=== PATIENT | female | born 1945 | race Caucasian/White ===

== ENCOUNTER → 2017-05-11 17:30 | Outpatient (CLI) | payer MEDICARE, MEDICAID, SELFPAY ==
--- NOTE | 2017-05-11 17:33 | XR_ITS ---
XR foot RT min 3V HISTORY: ITS.REASON: right heel pain ORDERING PHYSICIAN: Shayan Antony PATIENT AGE: 71 years COMPARISON: None FINDINGS: No fracture or dislocation. Generalized osteopenia. There is a small calcaneal spur at 3 mm nonspecific. There is normal alignment. IMPRESSION: No acute finding. Small calcaneal spur with generalized osteopenia
== END ==
PROVIDERS: PCP Nurse Practitioner Family; Visit Provider Nurse Practitioner Family
DX: M79.671 Pain in right foot (principal)
CPT/HCPCS: 73630

== ENCOUNTER → 2017-10-17 14:01 | Outpatient (CLI) | payer MEDICARE, MEDICAID, SELFPAY ==
[2017-10-17 18:12] LABS: Basophils % 0.6 % (0.1-2.0); Eosinophils # 0.2 K/mm3 (0.0-0.4); Eosinophils % 2.4 % (0.1-12.0); Hematocrit 40.1 % (37.0-47.0); Hemoglobin 13.2 g/dL (12.2-16.2); Lymphocytes # 2.1 K/mm3 (0.7-4.5); Lymphocytes % 29.6 K/mm3 (10-50); Mean Platelet Volume 7.2 fl (7.4-10.4); Monocytes # 0.6 K/mm3 (0.1-1.0); Monocytes % 8.5 % (1.7-9.3); Neutrophils # 4.1 K/mm3 (1.8-7.8); Platelet Count 318 K/mm3 (142-424); Red Blood Count 4.72 M/mm3 (4.20-5.40); Red Cell Distribution Width 12.9 % (11.5-17.5); White Blood Count 6.9 K/mm3 (4.8-10.8)
[2017-10-17 18:30] LABS: Alanine Aminotransferase 28 U/L (12-78); Albumin/Globulin Ratio 1.1 (1.1-1.8); Alkaline Phosphatase 107 U/L (46-116); Aspartate Amino Transferase 14 U/L (15-37); Bilirubin,Total 0.3 mg/dL (0.2-1.0); Blood Urea Nitrogen 19 mg/dL (7-18); Calcium 9.4 mg/dL (8.5-10.1); Carbon Dioxide 28 mmol/L (21.0-32.0); Chloride 101 mmol/L (98-107); Chol/HDL Ratio 4.2 (1-3.5); Cholesterol 182 mg/dL (140-200); Creatinine,Serum 0.79 mg/dL (0.55-1.02); Estimated Glomerular Filt Rate 72 ml/min (>60); GFR (African American) 87 ML/MIN (>60); Globulin 3.6 gm/dl (1.3-3.2); Glucose 99 mg/dL (74-106); HDL Cholesterol 43 mg/dL (29-89); LDL Cholesterol 99 mg/dL (0-130); Sodium 139 mmol/L (136-145); Thyroid Stimulating Hormone 1.92 uIU/ml (0.358-3.740); Total Protein,Serum 7.6 gm/dL (6.4-8.2); Triglycerides 200 mg/dL (30-200); VLDL Cholesterol 40 mg/dL (0-40)
== END ==
PROVIDERS: Visit Provider Emergency Medicine
DX: E78.5 Hyperlipidemia, unspecified (principal)
CPT/HCPCS: 80053; 80061; 84439; 84443; 85025

== ENCOUNTER → 2018-11-28 17:36 | Outpatient (CLI) | payer MEDICARE, MEDICAID, SELFPAY ==
[2018-11-28 18:42] LABS: Basophils # 0.1 K/mm3 (0-0.2); Basophils % 0.8 % (0.1-2.0); Eosinophils # 0.2 K/mm3 (0.0-0.4); Eosinophils % 2.5 % (0.1-12.0); Hemoglobin 12.5 g/dL (12.2-16.2); Lymphocytes # 2.2 K/mm3 (0.7-4.5); Lymphocytes % 32.3 % (10-50); Mean Corpuscular Hemoglobin 28.7 pg (27.0-31.2); Mean Corpuscular Volume 86.9 fl (81-99); Mean Platelet Volume 7.8 fl (7.4-10.4); Monocytes # 0.5 K/mm3 (0.1-1.0); Monocytes % 7.6 % (1.7-9.3); Neutrophils # 3.9 K/mm3 (1.8-7.8); Neutrophils % 56.8 % (37.0-80.0); Platelet Count 289 K/mm3 (142-424); Red Blood Count 4.37 M/mm3 (4.20-5.40); Red Cell Distribution Width 12.8 % (11.5-17.5); White Blood Count 6.9 K/mm3 (4.8-10.8)
[2018-11-28 19:02] LABS: Alanine Aminotransferase 30 U/L (12-78); Albumin/Globulin Ratio 1.1 (1.1-1.8); Alkaline Phosphatase 101 U/L (46-116); Aspartate Amino Transferase 24 U/L (15-37); Bilirubin,Total 0.3 mg/dL (0.2-1.0); Blood Urea Nitrogen 17 mg/dL (7-18); Calcium 9.3 mg/dL (8.5-10.1); Carbon Dioxide 29 mmol/L (21.0-32.0); Chloride 99 mmol/L (98-107); Cholesterol 163 mg/dL (140-200); Creatinine,Serum 0.64 mg/dL (0.55-1.02); Estimated Glomerular Filt Rate 91 ml/min (>60); Free T4 (Free Thyroxine) 1.03 ng/dl (0.76-1.46); GFR (African American) 110 ML/MIN (>60); Globulin 3.7 gm/dl (1.3-3.2); Glucose 83 mg/dL (74-106); HDL Cholesterol 41 mg/dL (29-89); LDL Cholesterol 84 mg/dL (0-130); Sodium 138 mmol/L (136-145); Total Protein,Serum 7.7 gm/dL (6.4-8.2); Triglycerides 190 mg/dL (30-200); VLDL Cholesterol 38 mg/dL (0-40)
[2018-11-30 07:57] LABS: Vitamin D 25 Hydroxy 31.2 ng/mL (30.0-100.0)
== END ==
PROVIDERS: Visit Provider Emergency Medicine
DX: I10 Essential (primary) hypertension (principal)
CPT/HCPCS: 80053; 80061; 82652; 84439; 84443; 85025

== ENCOUNTER → 2019-04-09 08:06 | Outpatient (CLI) | payer MEDICARE, MEDICAID, SELFPAY ==
--- NOTE | 2019-04-09 08:07 | CA_ITS ---
APPROVED REPORT EXAM: Comprehensive 2D, Doppler, and color-flow Echocardiogram Straight Cutter: Swetha Roldan RT(R) Ht: 4 ft 11 in Wt: 111lbs BSA: 1.44 BP: 153/78 mmHg Indications: CP, COPD, SOB, HTN, Hyperlipidemia 2D Dimensions LVOT 1.78 cm (M/F) 1.5-2.5 M-Mode Dimensions RVDd 1.59 cm (0.9-2.6) LVDd 4.44 cm (3.5-5.7) LVDs 3.16 cm (3.5-5.7) IVSd 0.84 cm (0.6-1.1) PWd 0.84 cm (0.6-1.1) EF (Teich) 55.70% FS 28.80% EDV (Teich) 89.60 mL ESV (Teich) 39.70 mL LV Diastology E/A Ratio 0.87 Mitral Valve MV A Velocity 103.00 (40-130 cm/s) Left Ventricle Left atrium is mildly enlarged, left ventricle is normal size, mild concentric left ventricular hypertrophy, visually estimated ejection fraction 55% with no regional wall motion abnormality, grade 1 diastolic dysfunction seen without tissue Doppler evidence of raise left atrial pressure. Right Ventricle Right atrium and right ventricular normal size and contractility. Aortic Valve Aortic valve is minimally thickened and fibrosed, there is no aortic stenosis or aortic insufficiency. Mitral Valve Mitral valve is grossly normal, there is mild mitral regurgitation. Tricuspid Valve Tricuspid valve is grossly normal, there is mild tricuspid regurgitation, tricuspid regurgitation jet velocity is inadequate for calculation of the right ventricular systolic pressure. Pulmonic Valve Pulmonic valve is poorly visualized. Great Vessels Aortic root is normal size. Pericardium No significant pericardial effusion noted. Conclusion 1. Mildly enlarged left atrium, normal left ventricular size, mild concentric left ventricular hypertrophy, visually estimated ejection fraction 55% with no regional wall motion abnormality. Grade 1 diastolic dysfunction seen without tissue Doppler evidence of raise left atrial pressure. 2. Mild mitral and tricuspid regurgitation. 3. No significant pericardial effusion noted. Electronically signed by : Tera Goodson, 04/09/2019 20:16:00
== END ==
PROVIDERS: PCP Emergency Medicine; Visit Provider Internal Medicine Cardiovascular Disease
DX: R06.00 Dyspnea, unspecified (principal)
CPT/HCPCS: 93306

== ENCOUNTER → 2019-09-11 13:41 | Outpatient (CLI) | payer MEDICARE, MEDICAID, SELFPAY ==
[2019-09-11 14:03] LABS: Alanine Aminotransferase 24 U/L (12-78); Albumin Level 4.8 g/dl (3.5-5.0); Albumin/Globulin Ratio 1.4 (1.1-1.8); Alkaline Phosphatase 109 U/L (38-126); Anion Gap 15.2 mEq/L (5-15); Aspartate Amino Transferase 35 U/L (14-36); Bilirubin,Total 0.7 mg/dl (0.2-1.3); Blood Urea Nitrogen 16 mg/dl (7-17); Calcium 9.9 mg/dl (8.4-10.2); Carbon Dioxide 27 mmol/L (22.0-30.0); Chloride 98 mmol/L (98-107); Chol/HDL Ratio 3.7 (1-3.5); Cholesterol 201 mg/dl (140-200); Estimated Glomerular Filt Rate 82 ml/min (>60); GFR (African American) 99 ML/MIN (>60); Globulin 3.4 g/dL (1.3-3.2); Glucose 98 mg/dl (74-100); HDL Cholesterol 55 mg/dl (40-60); Potassium 3.2 mmoL/L (3.5-5.1); Sodium 137 mmol/L (136-145); Total Protein,Serum 8.2 g/dl (6.3-8.2); Triglycerides 217 mg/dl (30-150); VLDL Cholesterol 43 mg/dL (0-40)
[2019-09-11 14:15] LABS: Direct LDL Cholesterol 110.08 mg/dL (100-129)
[2019-09-11 14:22] LABS: 25-OH Vitamin D, Total 34.1 ng/mL (30-100); Free T4 (Free Thyroxine) 1.28 ng/dl (0.78-2.19)
[2019-09-11 14:29] LABS: Basophils # 0.1 K/mm3 (0-0.2); Basophils % 0.7 % (0.1-2.0); Eosinophils # 0.2 K/mm3 (0.0-0.4); Hematocrit 36.5 % (37.0-47.0); Hemoglobin 12.6 g/dL (12.2-16.2); Lymphocytes # 1.9 K/mm3 (0.7-4.5); Lymphocytes % 30.2 % (10-50); Mean Corpuscular HGB Conc 34.6 g/dL (31.8-35.4); Mean Corpuscular Volume 86.5 fl (81-99); Mean Platelet Volume 7.8 fl (7.4-10.4); Monocytes # 0.5 K/mm3 (0.1-1.0); Monocytes % 7.1 % (1.7-9.3); Neutrophils # 3.7 K/mm3 (1.8-7.8); Neutrophils % 58.9 % (37.0-80.0); Platelet Count 298 K/mm3 (142-424); Red Blood Count 4.21 M/mm3 (4.20-5.40); Red Cell Distribution Width 12.9 % (11.5-17.5); White Blood Count 6.3 K/mm3 (4.8-10.8)
[2019-09-11 14:36] LABS: Thyroid Stimulating Hormone 1.92 uIU/mL (0.465-4.68)
== END ==
PROVIDERS: Visit Provider Emergency Medicine
DX: E78.5 Hyperlipidemia, unspecified (principal); I10 Essential (primary) hypertension; R68.89 Other general symptoms and signs; E55.9 Vitamin D deficiency, unspecified
CPT/HCPCS: 80053; 80061; 82306; 84439; 84443; 85025

== ENCOUNTER 2019-12-07 14:43 | Emergency (ER) | payer MEDICARE, MEDICAID, SELFPAY ==
[2019-12-07 14:54] VITALS: BP 153/83; PULSE 74; RESP 18; TEMP 37; O2SAT 98; BMI 22.2
--- NOTE | 2019-12-07 15:00 | CT_ITS ---
PROCEDURE: CT HEAD/BRAIN WO CON Referring Doctor: Frankie Hurst Patient Age:74Y CLINICAL INDICATION: fall head injury fell hit concrete with face head and neck injuries. COMPARISON: CT CT FACIAL BONES WO CON from 12/07/2019. Head injury face injury. TECHNIQUE: Standard axial images were obtained. All CT scans at the facility use one or more dose reduction, viz: automated exposure control, ma/kV adjustment per patient size (including targeted exams where dose is matched to indication, i.e. head), or iterative reconstruction technique. FINDINGS: No acute intracranial findings. No intracranial hemorrhage. No hydrocephalus.The ventricles and basal cisterns appear clear and satisfactory. Mild cerebral atrophy age-appropriate no mass or midline shift nor mass effect. No subdural or extra-axial fluid collection is evident. Posterior fossa unremarkable. . Skull intact- calvarium unremarkable appearance. Opacification of few of the left mastoid tip air cells tip reflecting very minor limited mastoid effusion.-Unimpressive. The more superior mastoid air cells on the left are clear. Middle ear and IAC's unremarkable. Right mastoid air cells well developed and clear throughout Nosinus air-fluid level. Visualized portions of the paranasal sinuses and orbits unremarkable. IMPRESSION: No acute intracranial findings Dictated by: Seven Collado MD 12/07/2019 17:21 Seven Collado MD in [facility] 12/07/2019 17:21
--- NOTE | 2019-12-07 15:01 | CT_ITS ---
PROCEDURE: CT CERVICAL SPINE WO CON Referring Doctor: Frankie Hurst Patient Age:74Y CLINICAL INDICATION: fall fall hit face on concrete facial injury. Neck pain. 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 All CT scans at the facility use one or more dose reduction, viz: automated exposure control, ma/kV adjustment per patient size (including targeted exams where dose is matched to indication, i.e. head), or iterative reconstruction technique. FINDINGS: Cervical spine with no acute fracture nor subluxation is evident. But nonspecific straightening most likely positional in nature although can be reflection of muscle spasm or neck pain. Normal prevertebral soft tissues. Facets, neural foramen and vertebral bodies intact. Mild degenerative facet changes Degenerative disc changes in cervical spondylosis developing at C5/6 mild disc space narrowing with some chondral cyst inferior C5 on the right. Minimal posterior osteophytic ridging and cervical spondylosis. . Schmorl's nodes superior endplate T2 noted Normal C1/C2 relationships. Mild apical scarring on the right more so than left. There is mild diffuse demineralization which accentuates striated appearance within the osseous elements of the C-spine.. If protein in the urine you might consider checking a serum electrophoresis IMPRESSION: Cervical spine intact with no acute fracture nor subluxation.,. Nonspecific straightening C-spine noted Dictated by: Seven Collado MD 12/07/2019 17:17 Seven Collado MD in [facility] 12/07/2019 17:17
--- NOTE | 2019-12-07 15:01 | CT_ITS ---
PROCEDURE: CT FACIAL BONES WO CON Referring Doctor: Frankie Hurst Patient Age:74Y CLINICAL HISTORY: fall facial injury hit face on concrete with lacerations and abrasion on nose and elsewhere COMPARISON: No exams were available for comparison TECHNIQUE: Axial images obtained with sagittal and coronal reformats. All CT scans at the facility use one or more dose reduction, viz: automated exposure control, ma/kV adjustment per patient size (including targeted exams where dose is matched to indication, i.e. head), or iterative reconstruction technique. FINDINGS: Bones: Unremarkable. No fracture, lytic, or blastic changes evident. No facial bone fractures . Sinuses: Unremarkable. Well developed paranasal sinuses throughout appear clear. The ostiomeatal complex and pathways are patent bilaterally.. No air-fluid levels or significant mucosal thickening. The mastoid air cells well developed and clear on the right. A few opacified left mastoid tip air cells noted. Minimal unimpressive but Orbits appear satisfactory. The medial wall and floor orbit intact.. The nasal bone is intact. There is deviation of the nasal septum with mild convexity to the right. Anteriorly the nose tilts to the left on the axial images. . There is some minor soft tissue irregularity at the superior aspect the nose towards the bridge of the nose, likely reflecting the recent soft tissue injury and superficial trauma Moderate engorgement nasal turbinates. Right and left TMJ intact. . IMPRESSION: Facial bones intact with no fracture. Paranasal sinuses well developed and clear. Dictated by: Seven Collado MD 12/07/2019 17:16 Seven Collado MD in [facility] 12/07/2019 17:16
--- NOTE | 2019-12-07 15:02 | XR_ITS ---
PROCEDURE: XR KNEE LT 3V Referring Doctor: Frankie Hurst Patient Age:74Y CLINICAL INDICATION: fall left knee pain Fall with knee pain COMPARISON: No exams were available for comparison FINDINGS: Left knee three views nonweightbearing Left knee intact with no fracture or dislocation. Lateral film suggests small joint effusion suprapatellar bursa-correlation required. The no lytic or blastic change. There is normal mineralization. The joint spaces are well-preserved. No significant degenerative/arthritic changes. No erosive changes evident. . On the AP film only node faint horizontal density which parallels the lateral tibial plateau. Doubtful significance but could reflect some early chondrocalcinosis IMPRESSION: No fracture evident Suspect minimal joint effusion suprapatellar bursa Dictated by: Seven Collado MD 12/07/2019 18:06 Seven Collado MD in [facility] 12/07/2019 18:06
--- NOTE | 2019-12-07 15:04 | HMH.EDFALL ---
ED Disposition Clinical Impression: Head trauma Qualifiers: Encounter type: initial encounter Qualified Code(s): S09.90XA - Unspecified injury of head, initial encounter Facial trauma Qualifiers: Encounter type: initial encounter Qualified Code(s): S09.93XA - Unspecified injury of face, initial encounter Disposition: Home, Self-Care Condition on Discharge: Good Additional Instructions: Please return to the ED for further evaluation if you develop difficulty walking, persistent vomiting, severe headache, or changes in vision. Referrals: Dane Moeller MD [Primary Care Provider] - - Critical Care Critical Care Time: No Attestation: On , the high probability of a clinically significant, sudden or life threatening deterioration of the following system(s) required my full and direct attention, intervention and personal management. The time I documented below is in addition to time spent performing reported procedures but includes the following listed in this critical care notation. Medical Decision Making - Anibal Inquiry Pt receiving controlled substance: No Vital Signs: 12/07/19 14:54 Temperature 98.6 F Temperature Source Oral Pulse Rate [Radial] 74 Respiratory Rate 18 Blood Pressure [Right Arm] 153/83 H Blood Pressure Mean [Right Arm] 106 Blood Pressure Position [Right Arm] Sitting 02 Sat by Pulse Oximetry 98 Oxygen Delivery Method Room Air Orders (Tests/Meds): ED MEDICATIONS Discontinued Medications Generic Name Dose Route Start Last Admin Trade Name Freq PRN Reason Stop Dose Admin Hydrocodone Bitart/Acetaminophen 1 tab 12/07/19 17:13 12/07/19 17:16 Hydrocodone/Apap 5/325 Mg Tablet PO 12/07/19 17:14 1 tab ONCE ONE Administration Tetanus/Reduced Diphtheria/Acell Pertussis 0.5 ml 12/07/19 15:02 12/07/19 16:59 Tet/Diphth/Pert-Adult 0.5ml Syringe IM 12/07/19 15:03 0.5 ml .ONCE ONE Administration ORDERS Category Date Time Status CT cervical spine wo con Stat Cat Scan 12/07/19 15:[address] head/brain wo con Stat Cat Scan 12/07/19 15:00 Taken Knee XR left 3 views [XR knee LT 3V] Stat Exams 12/07/19 15:02 Taken - Radiology Data #1 Image(s): Knee Image Reviewed: Yes I reviewed the patient's radiology image Preliminary Findings: Normal/NAD No acute abnormalities no evidence of fracture or dislocation. - CT Data CT Scan: Head, C-Spine Time Received: 16:[address] Reviewed: Yes: I have reviewed the patient's CT results Preliminary Findings: Normal/NAD Medical Decision Narrative: 74-year-old female who presents with facial trauma following a fall from standing mechanical in nature with negative LOC. Patient is well-appearing nontoxic initial examination no concerning findings on exam other than some nasal tenderness with an abrasion. Patient is not on blood thinners and has a nonfocal neurologic exam. CT of the head and face are ordered and as well as a x-ray of the left knee with pain and abrasion on exam. CT of the head and face demonstrate no acute abnormalities. Left knee x-rays reviewed demonstrating no acute fracture or dislocation. Patient is able to tolerate p.o. is discharged home with appropriate return precautions. Fall HPI - General Chief Complaint: Fall Stated Complaint: AO fall, Nose Lac, knee pain Time Seen by Provider: 12/07/19 15:05 Mode of Arrival: Ambulatory Source of Information: Patient, Spouse Limitations: No Limitations Description of Symptoms (Recalled from ER Triage Doc. by RN): to ed per pvt car with c/o fall states tripped over a curb c/o pain nose with lac noted also c/o lt knee pain. pt denies any loc, nausea, vomiting or visual changes - History of Present Illness HPI Narrative: 74-year-old female presents after a fall from standing mechanical over a curb landing on her face. Negative LOC does not take blood thinners and has had no difficulty walking or dizziness or changes in vision. No persistent vomiting since t
[2019-12-07 17:46] VITALS: BP 123/85; PULSE 87; RESP 18; TEMP 36.8; O2SAT 100
== END 2019-12-07 17:46 | disposition home or self-care (01) ==
PROVIDERS: Emergency Provider Student in an Organized Health Care Education/Training Program; PCP Emergency Medicine
DX: S01.511A Laceration without foreign body of lip, initial encounter (principal); W10.1XXA Fall (on)(from) sidewalk curb, initial encounter; K21.9 Gastro-esophageal reflux disease without esophagitis; I10 Essential (primary) hypertension; E78.5 Hyperlipidemia, unspecified; E03.9 Hypothyroidism, unspecified; Z79.899 Other long term (current) drug therapy; Z88.2 Allergy status to sulfonamides; Z90.49 Acquired absence of other specified parts of digestive tract; Z90.710 Acquired absence of both cervix and uterus; Z23 Encounter for immunization
CPT/HCPCS: 70450; 70486; 72125; 73562; 90471; 90715; 99282

== ENCOUNTER → 2020-10-27 12:55 | Outpatient (CLI) | payer MEDICARE, MEDICAID, SELFPAY | PROVIDERS: Visit Provider Surgery | DX: Z01.812 Encounter for preprocedural laboratory examination (principal); Z20.822 Contact with and (suspected) exposure to COVID-19; R13.10 Dysphagia, unspecified; R05 Cough | CPT/HCPCS: U0003 ==

== ENCOUNTER 2020-10-29 07:20 | Day surgery (SDC) | payer MEDICARE, MEDICAID, SELFPAY ==
[2020-10-27 14:00] VITALS: BMI 23.6
[2020-10-29 07:44] VITALS: BP 147/81; PULSE 80; RESP 18; TEMP 36.8; O2SAT 98
--- NOTE | 2020-10-29 08:00 | P.PN_ITS ---
[facility] Anesthesia Checklist - Patient Identification Patient Identification: Arm Band - Structural Data Admitted From: Home Planned Operative Procedure/s: EGD Consent for Planned Operative Procedure(s) Verified: Yes - NPO Status Verified Time NPO: 00:00 - Additional verifications Anesthesia Reactions: No - Airway Assessment C-Spine Mobility Assessed: Yes TMJ Mobility Assessed: Yes Dentition: Poor Dentition - Neurological Assessment Level of Consciousness: Awake Hx Seizures: No Numbness or tingling in extremities: No - Anesthesia Plan Anesthesia Risk discussed: Yes Anesthesia Plan: Verified ASA Class: III Anesthesia Type: MAC [facility] History I have reviewed the patient's past medical history: Yes Medical History: Reports:: Gastroesophageal Reflux Disease(GERD), Hyperlipidemia, Hypertension, Lung Disease Denies:: Cancer, Diabetes Mellitus Type 1, Diabetes Mellitus Type 2, Gastrointestinal Bleed, Internal Pacemaker, MRSA, Renal Disease, Seizures, Ulcer *Have you ever received a pneumonia vaccine?: No *Have you received a flu vaccine this season?: Yes Other Medical History: Reports: Hypothyroidism Anesthesia experience/problems:: None Laterality Cases: Bilateral: Cataract Other Surgeries: Yes: Cholecystectomy, Colonoscopy, , EGD, Hysterectomy-Total, Other. No: Pacemaker Amputation: No Fractures: Yes - *Social History Last grade of school completed: 9th or 10th Smoking Status: Never smoker Alcohol Intake: never Substance Use Type: denies use *Occupational Status:: disabled Housing: other Household Members: other *Travel in the last 8 weeks: None Family Hx:: Non-contributory
[2020-10-29 08:17] VITALS: O2SAT 98
--- NOTE | 2020-10-29 08:36 | HMH.SCOPE ---
- Procedure: Date: 10/29/20 Patient Date of :: 1945 Procedure Performed:: Esophagogastroduodenoscopy with biopsies Indications:: Patient is a 74-year-old female. She is somewhat of a poor historian. She is referred by Dr. Moeller apparently for upper endoscopy to apparently work-up cough. Patient has had an intractable cough of unclear etiology. She does have a history of GERD and takes omeprazole. She denies any symptoms of odynophagia or dysphagia. Performing Provider:: James Camacho MD Referring Provider:: Rico Moeller MD Sedation:: MAC sedation Procedure:: Patient was taken to endoscopy procedure room. She was positioned lateral decubitus position. With placement of the bite block patient has significant retching and gagging. Adequate intravenous sedation was achieved. Olympus endoscope was inserted via the oropharynx. Esophagus was cannulated. There may have been some cricopharyngeal spasm. Overall esophagus appeared relatively unremarkable. Gastroesophageal junction was encountered at 35 cm from the incisors. Stomach was cannulated and insufflated. Retroflexion revealed tiny hiatal hernia. There was some diffuse mild nonerosive gastritis. Biopsies were obtained. Biopsies obtained for CLOtest for H. pylori. Pylorus was traversed. Duodenum appeared unremarkable. Endoscope was withdrawn into the distal esophagus. Biopsy was obtained at the gastroesophageal junction to evaluate for Dumont's esophagus. Distal esophageal biopsy was obtained to rule out microscopic esophagitis. There was no obvious evidence of esophagitis consistent with reflux and aspiration. Endoscope was withdrawn. Findings:: Small hiatal hernia Mild nonerosive gastritis Recommendations:: No evidence of definite reflux is a contributing factor for her cough Complications:: None immediately apparent Estimated blood obtained (mL): 4
[2020-10-29 08:38] VITALS: BP 128/67; PULSE 93; RESP 18; TEMP 36.4; O2SAT 95
[2020-10-29 08:48] VITALS: BP 131/67; PULSE 83; RESP 18; O2SAT 98
[2020-10-29 08:58] VITALS: BP 146/82; PULSE 83; RESP 18; O2SAT 96
[2020-10-29 09:08] VITALS: BP 139/87; PULSE 84; RESP 18; O2SAT 97
== END 2020-10-29 09:08 | disposition home or self-care (01) ==
LOC: OUTP 07:22
PROVIDERS: PCP Emergency Medicine; Visit Provider Surgery
PROC: 0DJ08ZZ Inspection of Upper Intestinal Tract, Via Natural or Artificial Opening Endoscopic (ICD-10-PCS; CPT 43235; principal; 2020-10-29 08:30)
DX: K29.60 Other gastritis without bleeding (principal); K44.9 Diaphragmatic hernia without obstruction or gangrene; E78.5 Hyperlipidemia, unspecified; I10 Essential (primary) hypertension; K21.9 Gastro-esophageal reflux disease without esophagitis; J98.4 Other disorders of lung; Z90.49 Acquired absence of other specified parts of digestive tract; E03.9 Hypothyroidism, unspecified; Z88.2 Allergy status to sulfonamides; Z88.8 Allergy status to other drugs, medicaments and biological substances; Z79.899 Other long term (current) drug therapy
CPT/HCPCS: 43239; 87339; 88305

== ENCOUNTER 2021-10-30 14:20 | Emergency (ER) | payer MEDICARE, MEDICAID, SELFPAY ==
--- NOTE | 2021-10-30 15:57 | XR_ITS ---
FINAL REPORT CLINICAL HISTORY: fall this morning and right knee pain FINDINGS: Right knee Three views were obtained. There is no acute fracture or dislocation. No soft tissue abnormality is identified. Small joint effusion is identified. The bones are osteopenic. IMPRESSION: Small joint effusion. Reviewed, Interpreted and Dictated by Yefri Maxwell MD Transcribed by Rukhsana Cooper Authenticated and [facility]
--- NOTE | 2021-10-30 15:57 | XR_ITS ---
FINAL REPORT CLINICAL HISTORY: fall right low leg pain/foot pain FINDINGS: Right foot Three views were obtained. There is no acute fracture or dislocation. The joint spaces appear normal. No soft tissue abnormality is identified. There is a small plantar spur. The bones are osteopenic. IMPRESSION: No acute process. Reviewed, Interpreted and Dictated by Yefri Maxwell MD Transcribed by Rukhsana Cooper Authenticated and . [facility]
--- NOTE | 2021-10-30 15:57 | XR_ITS ---
FINAL REPORT CLINICAL HISTORY: fall right low leg pain FINDINGS: Right tibia fibula Two views were obtained. There is no acute fracture or dislocation. The joint spaces appear normal. No soft tissue abnormality is identified. The bones are osteopenic. IMPRESSION: No acute process. Reviewed, Interpreted and Dictated by Yefri Maxwell MD Transcribed by Rukhsana Cooper Authenticated and [facility]
--- NOTE | 2021-10-30 15:57 | XR_ITS ---
FINAL REPORT CLINICAL HISTORY: fall right lower leg pain FINDINGS: Right ankle Three views were obtained. There is no acute fracture or dislocation. The joint spaces appear normal. No soft tissue abnormality is identified. There is a small plantar spur. The bones are osteopenic. The mortise is intact. IMPRESSION: No acute process. Reviewed, Interpreted and Dictated by Yefri Maxwell MD Transcribed by Rukhsana Cooper Authenticated and [facility]
--- NOTE | 2021-10-30 15:59 | EXP.UTC ---
Discharge Plan Disposition Patient Disposition: Home, Self-Care Condition: Good Prescriptions Prescriptions: No Action simvastatin 10 mg tablet See Rx Instructions .ROUTE .COMPLEX Qty: 90 0RF Dose Instruction: TAKE 1 TABLET BY MOUTH ONCE DAILY FOR CHOLESTEROL Rx Instructions: TAKE 1 TABLET BY MOUTH ONCE DAILY FOR CHOLESTEROL hydrochlorothiazide 25 mg tablet See Rx Instructions .ROUTE .COMPLEX Qty: 90 0RF Dose Instruction: TAKE 1 TABLET BY MOUTH ONCE DAILY Rx Instructions: TAKE 1 TABLET BY MOUTH ONCE DAILY levothyroxine 25 mcg tablet See Rx Instructions .ROUTE .COMPLEX Qty: 90 0RF Dose Instruction: TAKE 1 TABLET BY MOUTH ONCE DAILY Rx Instructions: TAKE 1 TABLET BY MOUTH ONCE DAILY omeprazole 40 mg capsule,delayed release(DR/EC) See Rx Instructions .ROUTE .COMPLEX Qty: 90 0RF Dose Instruction: TAKE 1 CAPSULE BY MOUTH ONCE DAILY FOR GERD Rx Instructions: TAKE 1 CAPSULE BY MOUTH ONCE DAILY FOR GERD losartan 50 mg tablet See Rx Instructions .ROUTE .COMPLEX Qty: 90 0RF Dose Instruction: TAKE 1 TABLET BY MOUTH ONCE DAILY Rx Instructions: TAKE 1 TABLET BY MOUTH ONCE DAILY metoprolol tartrate 50 mg tablet See Rx Instructions .ROUTE .COMPLEX Qty: 180 0RF Dose Instruction: TAKE 1 TABLET BY MOUTH TWICE DAILY Rx Instructions: TAKE 1 TABLET BY MOUTH TWICE DAILY Referrals Referrals: Dane Moeller MD [Primary Care Provider] - Enter time for follow up Corey Spicer MD [Staff Physician] - Enter time for follow up Activity Restrictions/Add. Instructions Additional Instructions/Restrictions: Rest the extremity, apply ice for 15 minutes as tolerated three or four times per day, Wear the terri wrap for compression, Elevate the extremity as tolerated while you are resting. Take ibuprofen for pain Follow up with Dr. Spicer (orthopedics). Sometimes there can be fractures that don't show up well on the first set of x-rays. I put in a referral but you need to call his office and schedule an appointment. Follow up with your regular doctor. GO TO THE ER FOR ANY WORSENING SYMPTOMS Clinical Impressions Clinical Impression: Right knee sprain Instructions Patient Instructions: DI for Knee Sprain, DI for Knee Pain, How to Use a Knee Immobilizer Discharge ED Provider: Kevin Yee [facility] General Stated complaint: fell hurt knees Time Seen by Provider: 10/30/21 15:59 History of Present Illness Provider Complaint: She states that she fell yesterday evening and twisted her right knee. She states that walking and bearing weight on it makes it worse. She denies that the knee is unstable. Related Data Previous Rx's Medication Instructions Recorded hydrochlorothiazide 25 mg tablet See Rx Instructions .Route 09/24/21 .COMPLEX #90 tabs levothyroxine 25 mcg tablet See Rx Instructions .Route 09/24/21 .COMPLEX #90 tabs losartan 50 mg tablet See Rx Instructions .Route 09/24/21 .COMPLEX #90 tabs metoprolol tartrate 50 mg tablet See Rx Instructions .Route 09/24/21 .COMPLEX #180 tabs omeprazole 40 mg capsule,delayed See Rx Instructions .Route 09/24/21 release .COMPLEX #90 caps simvastatin 10 mg tablet See Rx Instructions .Route 09/24/21 .COMPLEX #90 tabs Allergies Allergy/AdvReac Type Severity Reaction Status Date / Time Sulfa (Sulfonamide Allergy Intermediate rash Verified 10/30/21 16:15 Antibiotics) tuberculin,PPD,multi-puncture Allergy Intermediate Swelling Verified 10/30/21 16:15 of Lip/Tongue/Throat promethazine [From [facility]] Allergy Unknown VOMITTING Verified 10/30/21 16:15 PFSH PFSH Social History Smoking Status: Never smoker alcohol intake: never substance use type: denies use current occupational status: unemployed household members: none housing: house caffeine: Yes ROS Obtained: Yes All systems
[2021-10-30 16:12] VITALS: BP 125/68; PULSE 79; RESP 16; TEMP 37.2; O2SAT 98; BMI 23.6
[2021-10-30 17:08] VITALS: BP 125/68; PULSE 79; RESP 16; TEMP 37.2
== END 2021-10-30 17:09 | disposition home or self-care (01) ==
PROVIDERS: Emergency Provider Nurse Practitioner Family; PCP Emergency Medicine
DX: S83.91XA Sprain of unspecified site of right knee, initial encounter (principal); Z79.899 Other long term (current) drug therapy; Z88.2 Allergy status to sulfonamides; Z88.8 Allergy status to other drugs, medicaments and biological substances; Z88.7 Allergy status to serum and vaccine; X50.1XXA Overexertion from prolonged static or awkward postures, initial encounter
CPT/HCPCS: 73562; 73590; 73610; 73630; 99213; G0463

== ENCOUNTER 2021-11-25 19:44 | Emergency (ER) | payer MEDICARE, MEDICAID, SELFPAY ==
[2021-11-25] VITALS (8 sets, daily range): BP systolic 129–165; BP diastolic 63–88; PULSE 83–119; RESP 18; TEMP 36.7–38.8; O2SAT 95; BMI 24.0
[2021-11-25 20:35] LABS: Influenza A, PCR Not Detected (NotDetected); Influenza B, PCR Not Detected (NotDetected)
--- NOTE | 2021-11-25 20:36 | XR_ITS ---
PROCEDURE INFORMATION: Exam: XR Chest Exam date and time: 11/25/2021 8:41 PM Age: 76 years old Clinical indication: Fever TECHNIQUE: Imaging protocol: Radiologic exam of the chest. Views: 2 views. COMPARISON: CT CERVICAL SPINE WO CON 12/07/2019 3:42 PM FINDINGS: Lungs: Unremarkable. No consolidation. Pleural spaces: Unremarkable. No pleural effusion. No pneumothorax. Heart/Mediastinum: Calcified mediastinal lymph nodes. No cardiomegaly. Bones/joints: Unremarkable. IMPRESSION: No acute cardiopulmonary abnormality.
--- NOTE | 2021-11-25 20:50 | PC.NURSE ---
Pt gone to RAD
--- NOTE | 2021-11-25 21:24 | HMH.EDURI ---
Discharge Plan Disposition Patient Disposition: Home, Self-Care Prescriptions Prescriptions: No Action simvastatin 10 mg tablet See Rx Instructions .ROUTE .COMPLEX Qty: 90 0RF Dose Instruction: TAKE 1 TABLET BY MOUTH ONCE DAILY FOR CHOLESTEROL Rx Instructions: TAKE 1 TABLET BY MOUTH ONCE DAILY FOR CHOLESTEROL hydrochlorothiazide 25 mg tablet See Rx Instructions .ROUTE .COMPLEX Qty: 90 0RF Dose Instruction: TAKE 1 TABLET BY MOUTH ONCE DAILY Rx Instructions: TAKE 1 TABLET BY MOUTH ONCE DAILY levothyroxine 25 mcg tablet See Rx Instructions .ROUTE .COMPLEX Qty: 90 0RF Dose Instruction: TAKE 1 TABLET BY MOUTH ONCE DAILY Rx Instructions: TAKE 1 TABLET BY MOUTH ONCE DAILY omeprazole 40 mg capsule,delayed release(DR/EC) See Rx Instructions .ROUTE .COMPLEX Qty: 90 0RF Dose Instruction: TAKE 1 CAPSULE BY MOUTH ONCE DAILY FOR GERD Rx Instructions: TAKE 1 CAPSULE BY MOUTH ONCE DAILY FOR GERD losartan 50 mg tablet See Rx Instructions .ROUTE .COMPLEX Qty: 90 0RF Dose Instruction: TAKE 1 TABLET BY MOUTH ONCE DAILY Rx Instructions: TAKE 1 TABLET BY MOUTH ONCE DAILY metoprolol tartrate 50 mg tablet See Rx Instructions .ROUTE .COMPLEX Qty: 180 0RF Dose Instruction: TAKE 1 TABLET BY MOUTH TWICE DAILY Rx Instructions: TAKE 1 TABLET BY MOUTH TWICE DAILY Referrals Follow up/Referrals: Dane Moeller MD [Primary Care Provider] - See instructions Clinical Impressions Clinical Impression: COVID-19 Instructions Patient Instructions: DI for COVID-19 (Suspected or Confirmed ) Discharge ED Provider: Dane Moeller URI/Sore Throat HPI General Chief Complaint: Upper Respiratory Infection Stated Complaint: Coughing,sneezing Time Seen by Provider: 11/25/21 21:25 Mode of Arrival: Ambulatory Source of Information: Patient and Medical Record Limitations: No Limitations Description of Symptoms (Recalled from ER Triage Doc. by RN): pt c/o coughing, nauesa, sneezing, PATE since yesterday History of Present Illness HPI Narrative: has uri sx with cough since yesterday and does not feel well - Complaint: cough and nasal congestion Onset (ago): day(s) Duration: intermittent Severity: moderate Able to tolerate fluids by mouth: Yes Associated symptoms: denies other symptoms Treatments prior to arrival: none Related Data Previous Rx's Medication Instructions Recorded hydrochlorothiazide 25 mg tablet See Rx Instructions .Route 09/24/21 .COMPLEX #90 tabs levothyroxine 25 mcg tablet See Rx Instructions .Route 09/24/21 .COMPLEX #90 tabs losartan 50 mg tablet See Rx Instructions .Route 09/24/21 .COMPLEX #90 tabs metoprolol tartrate 50 mg tablet See Rx Instructions .Route 09/24/21 .COMPLEX #180 tabs omeprazole 40 mg capsule,delayed See Rx Instructions .Route 09/24/21 release .COMPLEX #90 caps simvastatin 10 mg tablet See Rx Instructions .Route 09/24/21 .COMPLEX #90 tabs Allergies Allergy/AdvReac Type Severity Reaction Status Date / Time Sulfa (Sulfonamide Allergy Intermediate rash Verified 10/30/21 16:15 Antibiotics) tuberculin,PPD,multi-puncture Allergy Intermediate Swelling Verified 10/30/21 16:15 of Lip/Tongue/Throat promethazine [From PHENERGAN] Allergy Unknown VOMITTING Verified 10/30/21 16:15 [facility] Medical History (Updated 11/25/21 @ 23:23 by Dane Moeller MD) High cholesterol Hypertension Social History (Updated 10/30/21 @ 22:42 by Kevin Yee APRN) Smoking Status: Never smoker alcohol intake: never substance use type: denies use current occupational status: unemployed Travel in the last 8 weeks: None household members: none housing: house caffeine: Yes ROS Obtained: Yes All systems reviewed & no additional complaints except as documented Constitutional Constitutional: Reports as per HPI and Reports malaise Eyes Eyes: Denies eye discharge ENT
[2021-11-25 21:36] LABS: Alanine Aminotransferase 37 U/L (12-78); Albumin Level 4.2 g/dl (3.5-5.0); Albumin/Globulin Ratio 1.2 (1.1-1.8); Alkaline Phosphatase 150 U/L (38-126); Anion Gap 16.1 mEq/L (5-15); Aspartate Amino Transferase 41 U/L (14-36); Bilirubin,Total 0.2 mg/dl (0.2-1.3); Blood Urea Nitrogen 15 mg/dl (7-17); Calcium 8.7 mg/dl (8.4-10.2); Carbon Dioxide 24 mmol/L (22.0-30.0); Chloride 98 mmol/L (98-107); Creatinine Clearance Estimated 40 mL/min (50-200); Estimated Glomerular Filt Rate 97 ml/min (>60); GFR (African American) 117 ML/MIN (>60); Globulin 3.4 g/dL (1.3-3.2); Glucose 110 mg/dl (74-100); Potassium 3.1 mmoL/L (3.5-5.1); Sodium 135 mmol/L (136-145); Total Protein,Serum 7.6 g/dl (6.3-8.2)
[2021-11-25 21:41] LABS: C-Reactive Protein 20.1 mg/L (0-4)
[2021-11-25 21:56] LABS: Procalcitonin 0.085 ng/mL (0.0-2.0)
[2021-11-25 22:02] LABS: Erythrocyte Sedimentation Rate 36 mm/hr (0-30)
[2021-11-25 22:08] LABS: Coronavirus 19, PCR Detected (NotDetected)
[2021-11-25 23:48] LABS: Basophils # 0.1 K/mm3 (0-0.2); Basophils % 1.1 % (0.1-2.0); Eosinophils % 0.6 % (0.1-12.0); Hematocrit 34.6 % (37.0-47.0); Hemoglobin 11.2 g/dL (12.2-16.2); Lymphocytes # 0.7 K/mm3 (0.7-4.5); Lymphocytes % 9.8 % (10-50); Mean Corpuscular HGB Conc 32.5 g/dL (31.8-35.4); Mean Corpuscular Hemoglobin 27.5 pg (27.0-31.2); Mean Corpuscular Volume 84.7 fl (81-99); Mean Platelet Volume 7.6 fl (7.4-10.4); Monocytes # 0.9 K/mm3 (0.1-1.0); Monocytes % 11.6 % (1.7-9.3); Neutrophils # 5.8 K/mm3 (1.8-7.8); Platelet Count 318 K/mm3 (142-424); Red Blood Count 4.08 M/mm3 (4.20-5.40); White Blood Count 7.5 K/mm3 (4.8-10.8)
== END 2021-11-25 23:46 | disposition home or self-care (01) ==
PROVIDERS: Emergency Provider Emergency Medicine; PCP Emergency Medicine
DX: U07.1 COVID-19 (principal)
CPT/HCPCS: 71046; 80053; 84145; 85025; 85651; 86140; 99283; C9803; U0003; U0005

== ENCOUNTER → 2022-07-05 23:32 | Outpatient (CLI) | payer MEDICARE, MEDICAID, SELFPAY ==
[2022-07-05 17:49] LABS: Basophils # 0.1 K/mm3 (0-0.2); Basophils % 0.7 % (0.1-2.0); Eosinophils # 0.2 K/mm3 (0.0-0.4); Eosinophils % 2.5 % (0.1-12.0); Hematocrit 39.1 % (37.0-47.0); Hemoglobin 12.8 g/dL (12.2-16.2); Lymphocytes # 1.6 K/mm3 (0.7-4.5); Lymphocytes % 22.2 % (10-50); Mean Corpuscular HGB Conc 32.7 g/dL (31.8-35.4); Mean Corpuscular Hemoglobin 27.8 pg (27.0-31.2); Mean Corpuscular Volume 85.1 fl (81-99); Mean Platelet Volume 8.4 fl (7.4-10.4); Monocytes # 0.5 K/mm3 (0.1-1.0); Monocytes % 6.9 % (1.7-9.3); Neutrophils % 67.8 % (37.0-80.0); Platelet Count 407 K/mm3 (142-424); Red Blood Count 4.59 M/mm3 (4.20-5.40); Red Cell Distribution Width 13.9 % (11.5-17.5); White Blood Count 7.4 K/mm3 (4.8-10.8)
[2022-07-05 18:25] LABS: Alanine Aminotransferase 30 U/L (12-78); Albumin Level 4.7 g/dl (3.5-5.0); Albumin/Globulin Ratio 1.4 (1.1-1.8); Alkaline Phosphatase 110 U/L (38-126); Amylase 70 U/L (30-110); Anion Gap 18.6 mEq/L (5-15); Aspartate Amino Transferase 32 U/L (14-36); Bilirubin,Total 0.8 mg/dl (0.2-1.3); Blood Urea Nitrogen 17 mg/dl (7-17); Calcium 9.5 mg/dl (8.4-10.2); Carbon Dioxide 24 mmol/L (22.0-30.0); Chloride 96 mmol/L (98-107); Chol/HDL Ratio 4.4 (1-3.5); Cholesterol 233 mg/dl (140-200); Estimated Glomerular Filt Rate 97 ml/min (>60); GFR (African American) 117 ML/MIN (>60); Globulin 3.3 g/dL (1.3-3.2); Glucose 98 mg/dl (74-100); HDL Cholesterol 53 mg/dl (40-60); Lipase 96 U/L (23-300); Potassium 3.6 mmoL/L (3.5-5.1); Sodium 135 mmol/L (136-145); Triglycerides 121 mg/dl (30-150); VLDL Cholesterol 24 mg/dL (0-40)
[2022-07-05 19:24] LABS: Direct LDL Cholesterol 130.43 mg/dL (100-129)
== END ==
PROVIDERS: PCP Student in an Organized Health Care Education/Training Program; Visit Provider Student in an Organized Health Care Education/Training Program
DX: R10.9 Unspecified abdominal pain (principal); K21.9 Gastro-esophageal reflux disease without esophagitis; I10 Essential (primary) hypertension
CPT/HCPCS: 80053; 80061; 82150; 83690; 85025

== ENCOUNTER → 2022-09-17 14:30 | Outpatient (CLI) | payer MEDICARE, MEDICAID, SELFPAY ==
--- NOTE | 2022-09-17 14:30 | MM_ITS ---
PROCEDURE INFORMATION: Exam: Bilateral Diagnostic Breast Tomosynthesis Exam date and time: 09/17/2022 2:23 PM Age: 76 years old Clinical indication: New inversion of L nipple TECHNIQUE: Imaging protocol: Bilateral Diagnostic tomosynthesis and 2D mammography including computer-aided detection (CAD) when performed. Unilateral or bilateral exam. COMPARISON: DMSB DIG MAMM-SCREEN WIL 10/30/2015 8:28 AM FINDINGS: MAMMOGRAPHY: The breasts are heterogeneously dense, which may obscure small masses. There is no stellate mass, architectural distortion or suspicious microcalcifications in either breast to suggest malignancy. No skin thickening or axillary adenopathy. IMPRESSION: Patient to return for left breast ultrasound for full evaluation new left nipple inversion ASSESSMENT: BI-RADS Category 0: Incomplete- Need Additional Imaging Evaluation and/or Prior Mammograms for Comparison
== END ==
PROVIDERS: PCP Emergency Medicine; Visit Provider Student in an Organized Health Care Education/Training Program
DX: N64.59 Other signs and symptoms in breast (principal)
CPT/HCPCS: 77062; 77066; G0279

== ENCOUNTER → 2022-10-13 13:46 | Outpatient (CLI) | payer MEDICARE, MEDICAID, SELFPAY ==
--- NOTE | 2022-10-13 13:46 | US_ITS ---
PROCEDURE INFORMATION: Exam: US Left Breast, Complete Exam date and time: 10/13/2022 1:52 PM Age: 76 years old Clinical indication: Nipple retraction; Left; Additional info: New retraction of left nipple TECHNIQUE: Imaging protocol: Complete ultrasound of all four quadrants of the left breast and the retroareolar regions, including ultrasound of the axilla when performed. COMPARISON: MG MM DIG MAMM BI DX W/CAD 09/17/2022 2:23 PM FINDINGS: Breast: Sonographic images of the left breast including the retroareolar region, all 4 quadrants and the axilla do not demonstrate any solid or cystic masses. This is with particular attention to the immediate left retroareolar region. No architectural distortion or acoustical shadowing. No skin thickening or axillary adenopathy. IMPRESSION: No focal findings to explain new left nipple inversion. If the nipple inversion is a fixed (irreversible) finding then MRI is recommended for further evaluation. If however the nipple inversion is reversible, this is considered within normal limits clinically and annual mammographic screening will be recommended ASSESSMENT: BI-RADS Category 1: Negative
== END ==
PROVIDERS: PCP Emergency Medicine; Visit Provider Student in an Organized Health Care Education/Training Program
DX: N64.53 Retraction of nipple (principal)
CPT/HCPCS: 76641

== ENCOUNTER 2023-04-13 21:48 | Outpatient (CLI) | payer MEDICARE, MEDICAID, SELFPAY ==
[2023-04-13 18:22] LABS: Alanine Aminotransferase 26 U/L (12-78); Albumin Level 4.2 g/dl (3.5-5.0); Albumin/Globulin Ratio 1.4 (1.1-1.8); Alkaline Phosphatase 102 U/L (38-126); Anion Gap 11.6 mEq/L (5-15); Aspartate Amino Transferase 29 U/L (14-36); Bilirubin,Total 0.3 mg/dl (0.2-1.3); Blood Urea Nitrogen 21 mg/dl (7-17); Calcium 9.8 mg/dl (8.4-10.2); Carbon Dioxide 26 mmol/L (22.0-30.0); Chloride 102 mmol/L (98-107); Estimated Glomerular Filt Rate 97 ml/min (>60); GFR (African American) 117 ML/MIN (>60); Globulin 2.9 g/dL (1.3-3.2); Glucose 93 mg/dl (74-100); Potassium 3.6 mmoL/L (3.5-5.1); Sodium 136 mmol/L (136-145); Total Protein,Serum 7.1 g/dl (6.3-8.2)
[2023-04-13 18:50] LABS: Thyroid Stimulating Hormone 1.95 uIU/mL (0.465-4.68)
== END 2023-04-13 23:59 ==
LOC: LAB.DROPOF 21:48
PROVIDERS: PCP Internal Medicine; Visit Provider Internal Medicine
DX: R53.83 Other fatigue (principal); E05.90 Thyrotoxicosis, unspecified without thyrotoxic crisis or storm; E03.9 Hypothyroidism, unspecified; Z79.899 Other long term (current) drug therapy; R79.9 Abnormal finding of blood chemistry, unspecified
CPT/HCPCS: 80053; 84443

== ENCOUNTER 2023-09-15 07:25 | Outpatient (CLI) | payer MEDICARE, MEDICAID, SELFPAY ==
[2023-09-14 18:17] LABS: Coronavirus 19, PCR Not Detected (NotDetected); Influenza A, PCR Not Detected (NotDetected); Influenza B, PCR Not Detected (NotDetected)
[2023-09-14 18:31] LABS: Basophils # 0.1 K/mm3 (0-0.2); Basophils % 0.6 % (0.1-2.0); Eosinophils # 0.4 K/mm3 (0.0-0.4); Eosinophils % 4.2 % (0.1-12.0); Hematocrit 37.4 % (37.0-47.0); Hemoglobin 12.1 g/dL (12.2-16.2); Mean Corpuscular HGB Conc 32.5 g/dL (31.8-35.4); Mean Corpuscular Hemoglobin 29.5 pg (27.0-31.2); Mean Corpuscular Volume 90.6 fl (81-99); Mean Platelet Volume 7.9 fl (7.4-10.4); Monocytes # 0.6 K/mm3 (0.1-1.0); Monocytes % 5.7 % (1.7-9.3); Neutrophils # 6.9 K/mm3 (1.8-7.8); Neutrophils % 69.6 % (37.0-80.0); Platelet Count 354 K/mm3 (142-424); Red Blood Count 4.12 M/mm3 (4.20-5.40); Red Cell Distribution Width 13.8 % (11.5-17.5); White Blood Count 9.9 K/mm3 (4.8-10.8)
[2023-09-14 18:57] LABS: Alanine Aminotransferase 34 U/L (12-78); Albumin Level 4.4 g/dl (3.5-5.0); Albumin/Globulin Ratio 1.4 (1.1-1.8); Alkaline Phosphatase 137 U/L (38-126); Anion Gap 11.5 mEq/L (5-15); Aspartate Amino Transferase 36 U/L (14-36); Bilirubin,Total 0.3 mg/dl (0.2-1.3); Blood Urea Nitrogen 16 mg/dl (7-17); Calcium 9.8 mg/dl (8.4-10.2); Carbon Dioxide 27 mmol/L (22.0-30.0); Chloride 104 mmol/L (98-107); Chol/HDL Ratio 4.7 (1-3.5); Cholesterol 166 mg/dl (140-200); Estimated Glomerular Filt Rate 97 ml/min (>60); GFR (African American) 117 ML/MIN (>60); Globulin 3.2 g/dL (1.3-3.2); Glucose 89 mg/dl (74-100); HDL Cholesterol 35 mg/dl (40-60); Potassium 3.5 mmoL/L (3.5-5.1); Sodium 139 mmol/L (136-145); Total Protein,Serum 7.6 g/dl (6.3-8.2); Triglycerides 300 mg/dl (30-150); VLDL Cholesterol 60 mg/dL (0-40)
[2023-09-14 19:04] LABS: NT Pro Brain Natriuretic Pep. 64.9 pg/mL (0-450)
[2023-09-14 19:15] LABS: Direct LDL Cholesterol 79.17 mg/dL (100-129)
[2023-09-14 19:58] LABS: Hemoglobin A1C 5.5 % (4.0-6.0)
--- NOTE | 2023-09-15 07:29 | XR_ITS ---
FINAL REPORT CLINICAL HISTORY: cough COMPARISON: None FINDINGS: Two views of the chest were obtained. The heart size and pulmonary vascularity are within normal limits. The mediastinum is normal. There is mild atelectasis versus scar present in the left lung base. There is no pneumothorax. The bony thorax is intact. IMPRESSION: Mild atelectasis versus scar in the left lung base. Reviewed, Interpreted and Dictated by James Velazquez III, MD Transcribed by Cassandra Hair Authenticated and [facility]
== END 2023-09-15 23:59 | disposition home or self-care (01) ==
LOC: RAD 07:26
PROVIDERS: PCP Internal Medicine; Visit Provider Family Medicine
DX: R53.83 Other fatigue (principal); E78.5 Hyperlipidemia, unspecified; R73.09 Other abnormal glucose; U07.1 COVID-19; R06.09 Other forms of dyspnea; R05.9 Cough, unspecified
CPT/HCPCS: 71046; 80053; 80061; 83036; 83880; 85025; 87636

== ENCOUNTER 2023-10-18 11:31 | Outpatient (CLI) | payer MEDICARE, MEDICAID, SELFPAY ==
--- NOTE | 2023-10-18 11:36 | XR_ITS ---
FINAL REPORT CLINICAL HISTORY: cough COMPARISON: None FINDINGS: Two views of the chest were obtained. The heart size and pulmonary vascularity are within normal limits. The mediastinum is normal. No acute pulmonary abnormality is identified. Minimal linear atelectasis is present in the left lung base. There is no pneumothorax. The bony thorax is intact. IMPRESSION: Minimal linear atelectasis is present without acute abnormality. Reviewed, Interpreted and Dictated by James Velazquez III, MD Transcribed by Cassandra Hair Authenticated and [facility]
== END 2023-10-18 23:59 | disposition home or self-care (01) ==
LOC: RAD 11:33
PROVIDERS: PCP Internal Medicine; Visit Provider Family Medicine
DX: R05.9 Cough, unspecified (principal)
CPT/HCPCS: 71046

== ENCOUNTER 2024-01-19 10:20 | Emergency (ER) | payer MEDICARE, MEDICAID, SELFPAY ==
[2024-01-19 10:38] VITALS: BP 143/65; PULSE 68; RESP 20; TEMP 36.8; O2SAT 100; BMI 23.6
--- NOTE | 2024-01-19 11:04 | ED_ITS ---
Discharge Plan Disposition Patient Disposition: Home, Self-Care Condition: Good Prescriptions Prescriptions: New doxycycline hyclate 100 mg capsule 100 mg PO BID Qty: 20 0RF No Action omeprazole 40 mg capsule,delayed release(DR/EC) See Rx Instructions .ROUTE .COMPLEX Qty: 90 0RF Dose Instruction: TAKE 1 CAPSULE BY MOUTH ONCE DAILY FOR GERD Rx Instructions: TAKE 1 CAPSULE BY MOUTH ONCE DAILY FOR GERD hydrochlorothiazide 25 mg tablet See Rx Instructions .ROUTE .COMPLEX Qty: 90 0RF Dose Instruction: TAKE 1 TABLET BY MOUTH ONCE DAILY Rx Instructions: TAKE 1 TABLET BY MOUTH ONCE DAILY levothyroxine 25 mcg tablet See Rx Instructions .ROUTE .COMPLEX Qty: 90 0RF Dose Instruction: TAKE 1 TABLET BY MOUTH ONCE DAILY Rx Instructions: TAKE 1 TABLET BY MOUTH ONCE DAILY metoprolol tartrate 50 mg tablet See Rx Instructions .ROUTE .COMPLEX Qty: 180 0RF Dose Instruction: TAKE 1 TABLET BY MOUTH TWICE DAILY Rx Instructions: TAKE 1 TABLET BY MOUTH TWICE DAILY losartan 50 mg tablet See Rx Instructions .ROUTE .COMPLEX Qty: 90 0RF Dose Instruction: TAKE 1 TABLET BY MOUTH ONCE DAILY Rx Instructions: TAKE 1 TABLET BY MOUTH ONCE DAILY Referrals Follow up/Referrals: Jose Gaona DO [Primary Care Provider] - See instructions Activity Restrictions/Add. Instructions Additional Instructions/Restrictions: You was prescribed Doxycycline for your tick bite, you are also on Omeprazole Please seperate the doses of these medications by a couple of hours Watch area if no improvement follow up with your Family Doctor Clean area with antibacterial soap and water do not pick at it or use perioxide on it Straight to ER if any life threatening symptoms Clinical Impressions Clinical Impression: Tick bite Instructions Patient Instructions: How to Remove a Tick, Protect Yourself from Tickborne Illnesses, Doxycycline Print Language Print Language: [place] Discharge ED Provider: [place]ootie Terry [facility] [place] General Stated complaint: tick bite L side of abdomen Mode of Arrival: Ambulatory Source of Information: Patient Time Seen by Provider: 01/19/24 11:04 Description of Symptoms (Recalled from Triage Doc. by RN): TICK BITE ON LEFT SIDE OF ABD HEENT Symptoms (Recalled from RN notes): No Resp Symptoms (Recalled from RN notes): No Skin Symptoms (Recalled from RN notes): Yes MS Symptoms (Recalled from RN notes): No Functional Status (Recalled from RN notes): WNL History of Present Illness Provider Complaint: Patient states that she had a tick on her left side of abdomen not sure how long it had been there and it was removed a few days ago and now she is having worsening of redness and looks infected so daughter wanted her to come in and get it looked at Related Data Previous Rx's ?Medication ?Instructions ?Recorded hydrochlorothiazide 25 mg tablet See Rx Instructions .Route 12/30/23 .COMPLEX #90 tabs levothyroxine 25 mcg tablet See Rx Instructions .Route 12/30/23 .COMPLEX #90 tabs losartan 50 mg tablet See Rx Instructions .Route 12/30/23 .COMPLEX #90 tabs metoprolol tartrate 50 mg tablet See Rx Instructions .Route 12/30/23 .COMPLEX #180 tabs omeprazole 40 mg capsule,delayed See Rx Instructions .Route 12/30/23 release .COMPLEX #90 caps doxycycline hyclate 100 mg capsule 100 mg PO BID #20 caps 01/19/24 Allergies Allergy/AdvReac Type Severity Reaction Status Date / Time Sulfa (Sulfonamide Allergy Intermediate rash Verified 11/21/23 11:07 Antibiotics) tuberculin,PPD,multi-puncture Allergy Intermediate Swelling Verified 11/21/23 11:07 of Lip/Tongue/Throat promethazine (From [facility]ENER[facility]) Allergy Unknown VOMITTING Verified 11/21/23 11:07 Worker's Comp Is this a Worker's Comp case?: No [facility] Disclaimer: The information contained in this section may have been updated after the patient was seen, as this information can be updated by other users. Medical History Hypertension High cholesterol Social History Smoking Status: Never smoker alcohol intake: never substance use type: denies use current occupational status: unemployed Travel in the last 8 weeks: None household members: none housing: house caffeine: Yes ROS Obtained: Yes All systems reviewed & no additional complaints except as documented and Yes Systems reviewed as appropriate & no additional complaints except as documented Constitutional Constitutional: Reports system reviewed and no additional complaints, except as documented and Reports as per HPI ENT Ears, Nose, Mouth, and Throat: Reports system reviewed and no additional complaints, except as documented and Reports as per HPI Cardiovascular Cardiovascular: Reports system reviewed and no additional complaints, except as documented and Reports as per HPI Respiratory Respiratory: Reports system reviewed and no additional complaints, except as documented and Reports as per HPI Gastrointestinal Gastrointestingal: Reports system reviewed and no additional complaints, except as documented and as per HPI Integumentary/Breasts Skin/Breast: Reports system reviewed and no additional complaints, except as documented, Reports as per HPI and Reports other (patient has red area for tick bite, where it was removed) Physical Exam General General appearance: alert and in no apparent distress ENT ENT exam: Present mucous membranes moist Chest Chest inspection: Present normal inspection and symmetric chest wall rise Respiratory Respiratory exam: Present normal lung sounds bilaterally; Absent respiratory distress or wheezes Cardiovascular Cardiovascular exam: Present regular rate, normal rhythm and normal heart sounds Abdominal Exam Abdominal exam: Present soft and normal bowel sounds; Absent distention or tenderness Neurological Exam Neurological exam: Present alert, oriented X3 and normal gait Skin Skin exam: Present other Expanded Skin Exam Body image: 2 1. red area with mild warmth from where patient reports had a tick and it was removed Medical Decision Making Medical Records Screening: Per USPSTF and CDC recommendations, given the prevalence of disease in our region, it is our hospital?s policy to screen for HIV and viral Hepatitis for all patients aged 18 and over and those with ongoing risk factors. Anibal Inquiry Pt receiving controlled substance: No Anibal was queried for this patient: No Vital Signs: 01/19/24 10:38 Temperature 98.2 F Temperature Source Oral Pulse Rate [Left Radial] 68 Respiratory Rate 20 Blood Pressure [Left Arm] 143/65 H Blood Pressure Mean [Left Arm] 91 02 Sat by Pulse Oximetry 100 Medical Decision Narrative: medication discussed with pharmacy
[2024-01-19 11:18] VITALS: BP 143/65; PULSE 68; RESP 20; TEMP 36.8
== END 2024-01-19 11:18 | disposition home or self-care (01) ==
PROVIDERS: Emergency Provider Nurse Practitioner; PCP Internal Medicine
DX: S30.861A Insect bite (nonvenomous) of abdominal wall, initial encounter (principal); W57.XXXA Bitten or stung by nonvenomous insect and other nonvenomous arthropods, initial encounter
CPT/HCPCS: 99213; G0381

== ENCOUNTER 2024-06-30 14:30 | Emergency (ER) | payer MEDICARE, MEDICAID, SELFPAY ==
[2024-06-30 14:45] LABS: Appearance,Urine CLEAR (Clear); Bilirubin,Urine Negative (Negative); Blood, Urine 2+ (Negative); Color,Urine YELLOW (Yellow); Glucose,Urine (UA) Negative (Negative); Ketones,Urine Negative (Negative); Leukocyte Esterase,Urine 1+ (Negative); Microscopic, Urine URINE MICROSCOPIC (MICROSCOPIC); Nitrate,Urine Negative (Negative); PH,Urine 7.5 (5.0-8.5); Protein,Urine TRACE (Negative); Specific Gravity, Urine 1.025 (1.005-1.030)
[2024-06-30 14:47] VITALS: BP 169/81; PULSE 69; RESP 19; TEMP 36.8; O2SAT 100; BMI 23.6
[2024-06-30 14:57] LABS: Basophils # 0.1 K/mm3 (0-0.2); Basophils % 0.6 % (0.1-2.0); Eosinophils # 0.2 Kmm3 (0.0-0.4); Eosinophils % 1.9 % (0.1-12.0); Hemoglobin 12.2 g/dL (12.2-16.2); Lymphocytes # 1.9 K/mm3 (0.7-4.5); Mean Corpuscular HGB Conc 33.9 g/dL (31.8-35.4); Mean Corpuscular Hemoglobin 29.5 pg (27.0-31.2); Mean Platelet Volume 9.1 fl (7.4-10.4); Monocytes # 0.7 K/mm3 (0.1-1.0); Monocytes % 8.3 % (1.7-9.3); Neutrophils # 5.9 K/mm3 (1.8-7.8); Nucleated Red Blood Cells # 0 10^3/uL; Nucleated Red Blood Cells % 0 %; Platelet Count 308 K/mm3 (142-424); Red Blood Count 4.14 M/mm3 (4.20-5.40); Red Cell Distribution Width 12.9 % (11.5-17.5); Red Cell Distribution Width-SD 40.9 fL; White Blood Count 8.8 K/mm3 (4.8-10.8)
[2024-06-30 15:00] VITALS: BP 162/89; PULSE 66; RESP 14; O2SAT 99
[2024-06-30 15:02] LABS: Bacteria,Urine 2+ /lpf; RBC,Urine 20-50 #/hpf (0-3); WBC,Urine TNTC #/hpf (0-3)
[2024-06-30 15:02] LABS: Albumin Level 4.5 g/dl (3.5-5.0); Chloride 106 mmol/L (98-107); Sodium 140 mmol/L (136-145)
[2024-06-30 15:03] LABS: Potassium 3.1 mmoL/L (3.5-5.1)
[2024-06-30 15:05] LABS: Alanine Aminotransferase 28 U/L (12-78); Alkaline Phosphatase 124 U/L (38-126); Anion Gap 12.1 mEq/L (5-15); Aspartate Amino Transferase 37 U/L (14-36); Bilirubin,Total 0.5 mg/dl (0.2-1.3); Blood Urea Nitrogen 16 mg/dl (7-17); Carbon Dioxide 25 mmol/L (22.0-30.0); Creatinine Clearance Estimated 38 mL/min (50-200); Estimated Glomerular Filt Rate 81 ml/min (>60); GFR (African American) 98 ML/MIN (>60); Globulin 3.3 g/dL (1.3-3.2); Total Protein,Serum 7.8 g/dl (6.3-8.2)
[2024-06-30 15:06] LABS: Albumin/Globulin Ratio 1.4 (1.1-1.8); Calcium 9.2 mg/dl (8.4-10.2); Glucose 94 mg/dl (74-100); Lipase 66 U/L (23-300)
--- NOTE | 2024-06-30 15:20 | ED_ITS ---
<Statement entered by Manjit Cortes MD - 06/30/24 15:32> I was consulted by the VINICIO, and we discussed the complexity of the problems being addressed. I approved the treatment and management plan for this patient's care in the emergency department, thus performing a substantive portion of the medical decision making. Manjit Cortes MD, ANEESH, FACEP Discharge Plan Disposition Patient Disposition: Home, Self-Care Condition: Good Prescriptions Prescriptions: New nitrofurantoin monohyd/m-cryst [Macrobid] 100 mg capsule 100 mg PO BID 7 Days Qty: 14 0RF Rx Instructions: must administer with a meal/food No Action hydrochlorothiazide 25 mg tablet See Rx Instructions .ROUTE .COMPLEX Qty: 90 0RF Dose Instruction: TAKE 1 TABLET BY MOUTH ONCE DAILY Rx Instructions: TAKE 1 TABLET BY MOUTH ONCE DAILY omeprazole 40 mg capsule,delayed release(DR/EC) See Rx Instructions .ROUTE .COMPLEX Qty: 90 0RF Dose Instruction: TAKE 1 CAPSULE BY MOUTH ONCE DAILY FOR GERD Rx Instructions: TAKE 1 CAPSULE BY MOUTH ONCE DAILY FOR GERD levothyroxine 25 mcg tablet See Rx Instructions .ROUTE .COMPLEX Qty: 90 0RF Dose Instruction: TAKE 1 TABLET BY MOUTH ONCE DAILY Rx Instructions: TAKE 1 TABLET BY MOUTH ONCE DAILY metoprolol tartrate 50 mg tablet See Rx Instructions .ROUTE .COMPLEX Qty: 180 0RF Dose Instruction: TAKE 1 TABLET BY MOUTH TWICE DAILY Rx Instructions: TAKE 1 TABLET BY MOUTH TWICE DAILY losartan 50 mg tablet See Rx Instructions .ROUTE .COMPLEX Qty: 90 0RF Dose Instruction: TAKE 1 TABLET BY MOUTH ONCE DAILY Rx Instructions: TAKE 1 TABLET BY MOUTH ONCE DAILY doxycycline hyclate 100 mg capsule 100 mg PO BID Qty: 20 0RF Referrals Follow up/Referrals: Nico Rizvi MD [Primary Care Provider] - See instructions Clinical Impressions Clinical Impression: Urinary tract infection Instructions Patient Instructions: DI for Urinary Tract Infection (UTI) Print Language Print Language: [place] Discharge ED Provider: Manjit Cortes General Adult HPI General Chief complaint: Abdominal Pain Stated complaint: Urinating frequently, low abd. pain Time Seen by Provider: 06/30/24 14:55 Mode of Arrival: Ambulatory Source of Information: Patient Description of Symptoms (Recalled from ER Triage Doc. by RN): pt presents to ED with c/o lower abdominal pain that began last night. pt reports she has a history of kidney infections and urinary infections. History of Present Illness HPI narrative: This is a 78-year-old female who presents to the ED today for complaint of burning with urination, urinary frequency and urgency. She has no fevers, no chills, no vomiting or nausea. She says she does have some pressure in her lower abdomen. She feels like she might have a kidney infection. Related Data Previous Rx's ?Medication ?Instructions ?Recorded doxycycline hyclate 100 mg capsule 100 mg PO BID #20 caps 01/19/24 hydrochlorothiazide 25 mg tablet See Rx Instructions .Route 04/04/24 .COMPLEX #90 tabs levothyroxine 25 mcg tablet See Rx Instructions .Route 04/04/24 .COMPLEX #90 tabs losartan 50 mg tablet See Rx Instructions .Route 04/04/24 .COMPLEX #90 tabs metoprolol tartrate 50 mg tablet See Rx Instructions .Route 04/04/24 .COMPLEX #180 tabs omeprazole 40 mg capsule,delayed See Rx Instructions .Route 04/04/24 release .COMPLEX #90 caps nitrofurantoin 100 mg PO BID 7 days #14 caps 06/30/24 monohydrate/macrocrystals 100 mg capsule (Macrobid) Allergies Allergy/AdvReac Type Severity Reaction Status Date / Time Sulfa (Sulfonamide Allergy Intermediate rash Verified 11/21/23 11:07 Antibiotics) tuberculin,PPD,multi-puncture Allergy Intermediate Swelling Verified 11/21/23 11:07 of Lip/Tongue/Throat promethazine (From PHENERGAN) Allergy Unknown VOMITTING Verified 11/21/23 11:07 [facility] Disclaimer: The information contained in this section may have been updated after the patient was seen, as this information can be updated by other users. Medical History Hypertension High cholesterol Social History Smoking Status: Current every day smoker alcohol intake: never substance use type: denies use current occupational status: unemployed Travel in the last 8 weeks: None household members: none housing: house caffeine: Yes Have you lived/traveled outside US in past 30 days?: No Contact w/someone who lives/traveled outside US past 30 days?: No Exposure to someone with infectious disease in past 14 days?: No Do you have a fever (greater than 100.4 F or 38 C)?: No Have you tested positive for COVID-19: No Exposed to someone with COVID-19 in past 14 days?: No Do you have a sore throat?: No Do you have a cough?: No Do you have any weakness?: No Do you have any diarrhea?: No Are you experiencing any unusual bleeding?: No Do you have any muscle aches/pain?: No Do you have any abdominal pain?: No Are you experiencing loss of taste or smell?: No Other Medical History Have you received the Flu Vaccine for this season: Yes Have you received the Pneumonia Vaccine: No ROS Obtained: Yes Systems reviewed as appropriate & no additional complaints except as documented Constitutional Constitutional: Reports as per HPI Physical Exam General General appearance: alert and in no apparent distress Head Head exam: atraumatic and normocephalic Eye Eye exam: Present normal appearance, PERRL and EOMI ENT ENT exam: Present normal oropharynx and mucous membranes moist Neck Neck exam: Present full ROM and trachea midline Respiratory Respiratory exam: Present normal lung sounds bilaterally Cardiovascular Cardiovascular exam: Present regular rate, normal rhythm, normal heart sounds, +S1 and +S2 Abdominal Exam Abdominal exam: Present soft and normal bowel sounds Abdominal tenderness: Present suprapubic Extremities Exam Extremities exam: Present normal inspection, full ROM and normal capillary refill Neurological Exam Neurological exam: Present alert, oriented X3 and normal gait Skin Skin exam: Present warm, dry and intact Medical Decision Making Medical Records Screening: Per USPSTF and CDC recommendations, given the prevalence of disease in our region, it is our hospital?s policy to screen for HIV and viral Hepatitis for all patients aged 18 and over and those with ongoing risk factors. Anibal Inquiry Pt receiving controlled substance: No Anibal was queried for this patient: No Vital Signs: 06/30/24 14:47 06/30/24 15:00 06/30/24 15:30 Temperature 98.2 F Temperature Source Oral Pulse Rate 66 58 L Pulse Rate [Left Radial] 69 Respiratory Rate 19 14 16 Blood Pressure 162/89 H 159/81 H Blood Pressure [Right Arm] 169/81 H Blood Pressure Mean 107 Blood Pressure Mean [Right Arm] 110 Blood Pressure Source [Right Arm] Automatic Cuff Blood Pressure Position [Right Arm] Supine 02 Sat by Pulse Oximetry 100 99 100 Oxygen Delivery Method Room Air Room Air 06/30/24 16:00 06/30/24 16:26 Temperature 98.0 F Temperature Source Pulse Rate 67 68 Pulse Rate [Left Radial] Respiratory Rate 16 17 Blood Pressure 150/82 H 150/82 H Blood Pressure [Right Arm] Blood Pressure Mean Blood Pressure Mean [Right Arm] Blood Pressure Source [Right Arm] Blood Pressure Position [Right Arm] 02 Sat by Pulse Oximetry 98 Oxygen Delivery Method Room Air Lab Data Lab Results 06/30/24 14:39: Urine Color Yellow, Urine Appearance Clear, Urine pH 7.5, Ur Specific [place] 1.025, Urine Protein Trace, Urine Glucose (UA) Negative, Urine Ketones Negative, Urine Blood 2+ A, Urine Nitrate Negative, Urine Bilirubin Negative, Urine Urobilinogen 1.0, Ur Leukocyte Esterase 1+ A, Urine RBC 20-50, Urine WBC Tntc, Ur Squamous Epith Cells 3-5, Urine Bacteria 2+ 06/30/24 14:45: WBC 8.8, RBC 4.14 L, Hgb 12.2, Hct 36.0 L, MCV 87.0, MCH 29.5, MCHC 33.9, RDW 12.9, Plt Count 308, MPV 9.1, Neut % (Auto) 67.0, Lymph % (Auto) 22.0, [place] % (Auto) 8.3, Eos % (Auto) 1.9, Baso % (Auto) 0.6, Neut # (Auto) 5.9, Lymph # (Auto) 1.9, [place] # (Auto) 0.7, Eos # (Auto) 0.2, Baso # (Auto) 0.1, Sodium 140, Potassium 3.1 L, Chloride 106, Carbon Dioxide 25, Anion Gap 12.1, BUN 16, Creatinine 0.70, Estimated Creat Clear 38, Estimated GFR 81, Est GFR ( Amer) 98, Glucose 94, Calcium 9.2, Total Bilirubin 0.5, AST 37 H, ALT 28, Alkaline Phosphatase 124, Total Protein 7.8, Albumin 4.5, Globulin 3.3 H, Albumin/Globulin Ratio 1.4, Lipase 66, HCV Ab SANDY w/Rflx PCR Qn Negative, HIV Ag/Ab Combo Qual Negative 06/30/24 14:45 06/30/24 14:45 Orders (Tests/Meds): ED MEDICATIONS Discontinued Medications Generic Name Dose Route Start Last Admin Trade Name Henryq PRN Reason Stop Dose Admin Potassium Chloride 40 meq 06/30/24 15:53 06/30/24 16:24 Potassium Chloride 20meq Tab PO 06/30/24 15:54 40 meq ONCE ONE Administration ORDERS Category Date Time Status Complete Blood Count Auto Diff Stat Lab 06/30/24 14:45 Completed Comprehensive Metabolic Panel Stat Lab 06/30/24 14:45 Completed HIV Combo Stat Lab 06/30/24 14:45 Completed Hepatitis C Ab Qual. W/ RFX Stat Lab 06/30/24 14:45 Completed Lipase Stat Lab 06/30/24 14:45 Completed UA [Urinalysis and Microscopic] Stat Lab 06/30/24 14:39 Completed Urine Culture Stat Micro 06/30/24 14:39 Received Medical Decision Narrative: Insert review patient is a 78-year-old female presenting to the emergency department for evaluation of dysuria. Patient is hemodynamically stable and nontoxic-appearing upon arrival, afebrile. Differential diagnosis includes UTI, among others. Workup will be conducted with hematologic labs and a urinalysis. Initial workup reviewed by me shows 1+ leukocytes and a 3.1 potassium. No imaging required but considered. Patient appears well and is stable. Will treat for UTI and discharged home. Patient is good with this plan. Patient safe for discharge home Critical Care Critical Care Time Critical Care Time: No
[2024-06-30 15:30] VITALS: BP 159/81; PULSE 58; RESP 16; O2SAT 100
[2024-06-30 16:00] VITALS: BP 150/82; PULSE 67; RESP 16; O2SAT 98
[2024-06-30 16:04] LABS: HIV Combo NEGATIVE (Negative)
[2024-06-30 16:12] LABS: Hepatitis C Ab Qual. W/ RFX NEGATIVE (Negative)
[2024-06-30] MEDS: POTASSIUM CHLORIDE 20MEQ TAB 40 MEQ PO (16:24)
[2024-06-30 16:26] VITALS: BP 150/82; PULSE 68; RESP 17; TEMP 36.7; O2SAT 99
--- NOTE | 2024-07-02 15:43 | PC.NURSE ---
URINE CULTURE DISCUSSED WITH DR HERNÁNDEZ, NO NEW ORDERS AT THIS TIME
== END 2024-06-30 16:29 | disposition home or self-care (01) ==
PROVIDERS: Emergency Provider Student in an Organized Health Care Education/Training Program; PCP Family Medicine
DX: N39.0 Urinary tract infection, site not specified (principal); R10.30 Lower abdominal pain, unspecified; E87.6 Hypokalemia; R35.0 Frequency of micturition; R30.0 Dysuria; Z11.59 Encounter for screening for other viral diseases; Z11.4 Encounter for screening for human immunodeficiency virus [HIV]
CPT/HCPCS: 80053; 81001; 83690; 85025; 86803; 87086; 87088; 87186; 87389; 99284

== ENCOUNTER 2024-07-26 08:40 | Outpatient (CLI) | payer MEDICARE, MEDICAID, SELFPAY ==
[2024-07-26 19:14] LABS: Chloride 104 mmol/L (98-107); Sodium 136 mmol/L (136-145)
[2024-07-26 19:15] LABS: Potassium 3.8 mmoL/L (3.5-5.1)
[2024-07-26 19:17] LABS: Anion Gap 11.8 mEq/L (5-15); Blood Urea Nitrogen 20 mg/dl (7-17); Carbon Dioxide 24 mmol/L (22.0-30.0); Estimated Glomerular Filt Rate 81 ml/min (>60); GFR (African American) 98 ML/MIN (>60)
[2024-07-26 19:18] LABS: Calcium 9.3 mg/dl (8.4-10.2); Glucose 109 mg/dl (74-100)
[2024-07-26 19:31] LABS: Free T4 (Free Thyroxine) 1.13 ng/dl (0.78-2.19)
== END 2024-07-26 23:59 | disposition home or self-care (01) ==
LOC: LAB.DROPOF 23:00
PROVIDERS: PCP Family Medicine; Visit Provider Family Medicine
DX: E87.6 Hypokalemia (principal); E03.9 Hypothyroidism, unspecified
CPT/HCPCS: 80048; 84439; 84443

== ENCOUNTER 2024-08-27 08:55 | Outpatient (CLI) | payer MEDICARE, MEDICAID, SELFPAY ==
--- NOTE | 2024-08-27 08:58 | XR_ITS ---
FINAL REPORT TECHNIQUE: Bone densitometry calculations of the lumbar spine and bilateral hips were obtained. CLINICAL HISTORY: SCREENING COMPARISON: None FINDINGS: Using L1-4, the bone mineral density of the spine is 0.712 g/cm2, corresponding to T-score of -3.0. Using the left hip, the bone mineral density of the femoral neck is 0.598 g/cm2, corresponding to a T-score of -2.8. Using the right hip, the bone mineral density of the femoral neck is 0.643 g/cm?, corresponding to a T-score of -1.9. NOTE: T-score: Standard deviation compared with peak bone mass of young adult mean. *Following the recommendations of the International Society of Bone Densitometry, classification of hip BMD is based on the lower of two T-scores; total hip or femoral neck. IMPRESSION: Osteoporosis: Lowest T-score is at or below -2.5. This patient's T-score meets the World Health Organization criteria for osteoporosis. Reviewed, Interpreted and Dictated by Eddi Varela MD Transcribed by Cassandra Hair Authenticated and [facility]
--- OUTSIDE RECORDS SUMMARY | 2024-08-27 09:08 | XMS_ITS ---
Laboratory report Created on: August 16, 2024 DACIA FERREIRA : 1945 Sex: Female Author Name ELENA PHILLIPS Organization Unknown PROBLEMS Problems List Code Description E55.9 I10 Z11.4 Z11.59 E03.9 RESULTS Laboratory Orders Date Order Code Test 2024-08-13 039615 VITAMIN D, 25-HY DROXY 2024-08-13 795711 LIPID PANEL 2024-08-13 567684 HCV ANTIBODY CRESCENCIO RADHA(PCR/NANI) 2024-08-13 101786 CBC WITH DIFFERE NTIAL/PLATELET 2024-08-13 128633 COMP. METABOLIC PANEL (14) 2024-08-13 [id number] TSH Laboratory Results Date LOINC Test Value Unit Reference Range Interpre tation 2024-08-13 14615-9 VITAMIN D, 25-HYDROXY 25 NG/ML 30.0-100.0 L 2024-08-13 2093-3 CHOLESTEROL, TOTAL 239 MG/DL 100-199 H 2024-08-13 2571-8 TRIGLYCERIDES 260 MG/DL 0-149 H 2024-08-13 2085-9 HDL CHOLESTEROL 38 MG/DL >39 L 2024-08-13 75542-3 VLDL CHOLESTEROL DOROTA 48 MG/DL 5-40 H 2024-08-13 08926-0 LDL CHOL CALC ([facility]) 153 MG/DL 0-99 H 2024-08-13 16962-9 HCV AB NR NON REACTIVE 2024-08-13 6690-2 WBC 5.8 X10E3/UL 3.4-10.8 2024-08-13 789-8 RBC 3.88 X10E6/UL 3.77-5.28 2024-08-13 718-7 HEMOGLOBIN 11.3 G/DL 11.1-15.9 2024-08-13 4544-3 HEMATOCRIT 34.5 % 34.0-46.6 2024-08-13 787-2 MCV 89 FL 79-97 2024-08-13 785-6 MCH 29.1 PG 26.6-33.0 2024-08-13 786-4 MCHC 32.8 G/DL 31.5-35.7 2024-08-13 788-0 RDW 12.2 % 11.7-15.4 2024-08-13 777-3 PLATELETS 294 X10E3/UL 921-024 5048-06-09 770-8 NEUTROPHILS 51 % 2024-08-13 736-9 LYMPHS 35 % 2024-08-13 5905-5 MONOCYTES 10 % 2024-08-13 713-8 EOS 3 % 2024-08-13 706-2 BASOS 1 % 2024-08-13 751-8 NEUTROPHILS (ABSOLUTE) 2.9 X10E3/UL 1.4-7.0 2024-08-13 731-0 LYMPHS (ABSOLUTE) 2 X10E3/UL 0.7-3.1 2024-08-13 742-7 MONOCYTES(ABSOLUTE) .6 X10E3/UL 0.1-0.9 2024-08-13 711-2 EOS (ABSOLUTE) .2 X10E3/UL 0.0-0.4 2024-08-13 704-7 BASO (ABSOLUTE) .1 X10E3/UL 0.0-0.2 2024-08-13 20257-4 IMMATURE GRANULOCYTES 0 % 2024-08-13 09063-4 IMMATURE GRANS (ABS) 0 X10E3/UL 0.0-0.1 2024-08-13 2345-7 GLUCOSE 88 MG/DL 70-99 2024-08-13 3094-0 BUN 18 MG/DL 8-27 2024-08-13 2160-0 CREATININE .61 MG/DL 0.57-1.00 2024-08-13 84285-5 EGFR 91 ML/MIN/1.7 3 >59 2024-08-13 3097-3 BUN/CREATININE RATIO 30 12-28 H 2024-08-13 2951-2 SODIUM 137 MMOL/L 851-829 9701-06-09 2823-3 POTASSIUM 4.2 MMOL/L 3.5-5.2 2024-08-13 2075-0 CHLORIDE 105 MMOL/L 96-106 2024-08-13 2028-9 CARBON DIOXIDE, TOTAL 19 MMOL/L 20-29 L 2024-08-13 45190-5 CALCIUM 9.7 MG/DL 8.7-10.3 2024-08-13 2885-2 PROTEIN, TOTAL 7.1 G/DL 6.0-8.5 2024-08-13 1751-7 ALBUMIN 4.3 G/DL 3.8-4.8 2024-08-13 79837-9 GLOBULIN, TOTAL 2.8 G/DL 1.5-4.5 2024-08-13 1975-2 BILIRUBIN, TOTAL .2 MG/DL 0.0-1.2 2024-08-13 6768-6 ALKALINE PHOSPHATASE 111 IU/L 44-121 2024-08-13 1920-8 AST (SGOT) 14 IU/L 0-40 2024-08-13 1742-6 ALT (SGPT) 16 IU/L 0-32 2024-08-13 81121-8 TSH 1.96 UIU/ML 0.450-4.500
--- OUTSIDE RECORDS SUMMARY | 2024-08-27 09:08 | XMS_ITS ---
Author Organization Unknown TREATMENT PLAN [facility] Start Date Provider Encounter for Check-up [id number] [facility]
--- OUTSIDE RECORDS SUMMARY | 2024-08-27 09:08 | XMS_ITS ---
Laboratory report Created on: August 25, 2024 DACIA FERREIRA : 1945 Sex: Female Author Name ELENA PHILLIPS Organization Unknown PROBLEMS Problems List Code Description E55.9 I10 Z11.4 Z11.59 E03.9 RESULTS Laboratory Orders Date Order Code Test 2024-08-13 [id number] VITAMIN D, 25-HY DROXY 2024-08-13 657966 LIPID PANEL 2024-08-13 422090 HCV ANTIBODY CRESCENCIO RADHA(PCR/NANI) 2024-08-13 761324 CBC WITH DIFFERE NTIAL/PLATELET 2024-08-13 364004 COMP. METABOLIC PANEL (14) 2024-08-13 802057 TSH Laboratory Results Date LOINC Test Value Unit Reference Range Interpre tation 2024-08-13 33434-0 VITAMIN D, 25-HYDROXY 25 NG/ML 30.0-100.0 L 2024-08-13 2093-3 CHOLESTEROL, TOTAL 239 MG/DL 100-199 H 2024-08-13 2571-8 TRIGLYCERIDES 260 MG/DL 0-149 H 2024-08-13 2085-9 HDL CHOLESTEROL 38 MG/DL >39 L 2024-08-13 57223-5 VLDL CHOLESTEROL DOROTA 48 MG/DL 5-40 H 2024-08-13 16996-8 LDL CHOL CALC ([facility]) 153 MG/DL 0-99 H 2024-08-13 39275-9 HCV AB NR NON REACTIVE 2024-08-13 6690-2 WBC 5.8 X10E3/UL 3.4-10.8 2024-08-13 789-8 RBC 3.88 X10E6/UL 3.77-5.28 2024-08-13 718-7 HEMOGLOBIN 11.3 G/DL 11.1-15.9 2024-08-13 4544-3 HEMATOCRIT 34.5 % 34.0-46.6 2024-08-13 787-2 MCV 89 FL 79-97 2024-08-13 785-6 MCH 29.1 PG 26.6-33.0 2024-08-13 786-4 MCHC 32.8 G/DL 31.5-35.7 2024-08-13 788-0 RDW 12.2 % 11.7-15.4 2024-08-13 777-3 PLATELETS 294 X10E3/UL 220-624 5509-06-09 770-8 NEUTROPHILS 51 % 2024-08-13 736-9 LYMPHS 35 % 2024-08-13 5905-5 MONOCYTES 10 % 2024-08-13 713-8 EOS 3 % 2024-08-13 706-2 BASOS 1 % 2024-08-13 751-8 NEUTROPHILS (ABSOLUTE) 2.9 X10E3/UL 1.4-7.0 2024-08-13 731-0 LYMPHS (ABSOLUTE) 2 X10E3/UL 0.7-3.1 2024-08-13 742-7 MONOCYTES(ABSOLUTE) .6 X10E3/UL 0.1-0.9 2024-08-13 711-2 EOS (ABSOLUTE) .2 X10E3/UL 0.0-0.4 2024-08-13 704-7 BASO (ABSOLUTE) .1 X10E3/UL 0.0-0.2 2024-08-13 19511-1 IMMATURE GRANULOCYTES 0 % 2024-08-13 85464-2 IMMATURE GRANS (ABS) 0 X10E3/UL 0.0-0.1 2024-08-13 2345-7 GLUCOSE 88 MG/DL 70-99 2024-08-13 3094-0 BUN 18 MG/DL 8-27 2024-08-13 2160-0 CREATININE .61 MG/DL 0.57-1.00 2024-08-13 05767-5 EGFR 91 ML/MIN/1.7 3 >59 2024-08-13 3097-3 BUN/CREATININE RATIO 30 12-28 H 2024-08-13 2951-2 SODIUM 137 MMOL/L 128-286 2048-06-09 2823-3 POTASSIUM 4.2 MMOL/L 3.5-5.2 2024-08-13 2075-0 CHLORIDE 105 MMOL/L 96-106 2024-08-13 2028-9 CARBON DIOXIDE, TOTAL 19 MMOL/L 20-29 L 2024-08-13 74286-4 CALCIUM 9.7 MG/DL 8.7-10.3 2024-08-13 2885-2 PROTEIN, TOTAL 7.1 G/DL 6.0-8.5 2024-08-13 1751-7 ALBUMIN 4.3 G/DL 3.8-4.8 2024-08-13 09531-6 GLOBULIN, TOTAL 2.8 G/DL 1.5-4.5 2024-08-13 1975-2 BILIRUBIN, TOTAL .2 MG/DL 0.0-1.2 2024-08-13 6768-6 ALKALINE PHOSPHATASE 111 IU/L 44-121 2024-08-13 1920-8 AST (SGOT) 14 IU/L 0-40 2024-08-13 1742-6 ALT (SGPT) 16 IU/L 0-32 2024-08-13 58709-9 TSH 1.96 UIU/ML 0.450-4.500
== END 2024-08-27 23:59 | disposition home or self-care (01) ==
LOC: RAD 08:56
PROVIDERS: PCP Physician Assistant; Visit Provider Physician Assistant
DX: M81.0 Age-related osteoporosis without current pathological fracture (principal)
CPT/HCPCS: 77080